=== PATIENT | female | born 1945 | race Caucasian/White ===

== ENCOUNTER → 2017-01-23 | Outpatient (CLI) | payer MEDICARE, BC ==
[~2017-01-23] MED LIST: ACETAMINOPHEN325 MG PO; AMLODIPINE BESY10 MG PO; AVAPRO PO; BACTRIM DS TABL1 TA1 PO; BAYER ASPIRIN325 M1 PO; CEPHALEXIN500 M1 PO; DOXYCYCLINE HYC20 MG PO; DOXYCYCLINE PO; FOSAMAX PO; LISINOPRIL10 MG PO; LISINOPRIL20 MG PO; LOPRESSOR PO; NORVASC PO; NORVASC10 MG PO; PERCOCET5/325 PO; PLAVIX PO; SIMVASTATIN10 MG PO; VICODIN 5/500 T1 TAB PO; VITAMIN B COMP1 EACH PO; VITAMIN C500 M1 PO; VITAMIN D400 UNI1 PO; [UNRECOGNIZED DRUG - MIXTURE] PO
--- NOTE | ~2017-01-23 | MY10 ---
[facility] RADIOLOGY TEXT RESULTS PATIENT: NAOMI SCOTT LOCATION: [facility] : 41 UNIT #: [id number] AGE: [address]: Oscar Padilla MD SEX: F ORDER DR: [id number] [facility] [address] [place], [place] [address] [id number] MR#: [id number] Acc #: [id number] NAME: NAOMI SCOTT : 1945 SEX: F STUDY DATE/TIME: 01/23/2017 15:15 UNIT: [facility] ROOM: STUDY DESCRIPTION: MY Mammogram Screen Uni Dig Rt Attending Physician: Oscar Padilla M.D. Ordering Physician: Oscar Padilla M.D. Primary Care Physician: Oscar Padilla M.D. MEDICAL IMAGING REPORT This report is preliminary unless electronic signature is present EXAM Right digital screening mammogram INDICATIONS Routine screening. No current complaints. No family history of breast cancer in sister. Previous left mastectomy. IMPRESSION 01/12/2016 12/29/2014 09/17/2013. FINDINGS MLO and CC digital views of the right breast were obtained. The exam was reviewed with an FDA-approved CAD device. The breasts have scattered fibroglandular densities. There are no masses or abnormal calcifications. There has been no change. IMPRESSION No change. No evidence of malignancy. Patients over the age of 40 are entered into a reminder system with target due date for the next mammogram. A result letter will also be sent to the patient. BIRADS: 1, negative. Dictated by... Mc Chua M.D. THIS IS AN ELECTRONICALLY VERIFIED REPORT Mc Chua M.D. at 01/24/2017 3:56 PM JEREMY/[id number] [facility] RADIOLOGY TEXT RESULTS PATIENT: NAOMI SCOTT LOCATION: [facility] : 41 UNIT #: [id number] AGE: [address]: Oscar Padilla MD SEX: F ORDER DR: TD: 01/24/2017 12:52 JOB #: [id number] MEDICAL IMAGING REPORT Page 1 of 1 COPY
== END | disposition home or self-care (01) ==
LOC: CWCC 14:44
DX: Z12.31 Encounter for screening mammogram for malignant neoplasm of breast (principal); Z90.12 Acquired absence of left breast and nipple
CPT/HCPCS: G0202